=== PATIENT | female | born 1955 | race Caucasian/White ===

== ENCOUNTER 2019-10-02 06:47 | Outpatient (CLI) | payer MEDICARE ==
[2019-10-02] MEDS ORDERED: REGADENOSON 0.4 MG/5 ML SYRINGE ONE (07:27)
== END 2019-10-02 23:59 | disposition home or self-care (01) ==
LOC: CFH 06:47
PROVIDERS: ATTEND Internal Medicine Cardiovascular Disease
DX: Z01.810 Encounter for preprocedural cardiovascular examination (principal); I10 Essential (primary) hypertension; I21.29 ST elevation (STEMI) myocardial infarction involving other sites; I25.89 Other forms of chronic ischemic heart disease; I08.3 Combined rheumatic disorders of mitral, aortic and tricuspid valves
CPT/HCPCS: 78452; 93017; 93306; A9502; J2785